=== PATIENT | male | born 1935 | race African-American/Black ===

== ENCOUNTER 2020-02-02 15:23 | Emergency (ER) | payer OTHER ==
[~2020-02-02] VITALS: Ht 177.8 cm; Wt 73.9 kg
[~2020-02-02 15:23] MED LIST: BUDEPRION SR150 MG PO; CARDURA4 MG PO; CEREFOLIN NAC PO; FIBER CHOICE1 EACH PO; FISH OIL 1,0001 EAC5 PO; HYDROCHLOROTHIA25 M1 PO; HYDROCODON-ACE1 EAC7 PO; NAPROSYN500 MG PO; NORCO 5-325 TA1 EACH PO; ONE DAILY TABL1 EAC1 PO; REMERON15 MG PO; ZOCOR 20 MG TAB20 M1 PO; ZPAK PO; [UNRECOGNIZED DRUG - REMARK]
[2020-02-02] MEDS ORDERED: SERTRALINE HCL100 MG PO (16:02)
[2020-02-02] MEDS ORDERED: ARICEPT10 MG PO (16:02)
[2020-02-02] MEDS ORDERED: BUPROPION XL300 MG PO (16:02)
[2020-02-02] MEDS ORDERED: MIRTAZAPINE45 MG PO (16:03)
[2020-02-02 18:12] VITALS: BP 180/104
== END 2020-02-02 18:12 | disposition home or self-care (01) ==
LOC: ER 15:23
DX: S00.93XA Contusion of unspecified part of head, initial encounter (principal); M54.2 Cervicalgia; K21.9 Gastro-esophageal reflux disease without esophagitis; I10 Essential (primary) hypertension; Z98.890 Other specified postprocedural states; Z79.899 Other long term (current) drug therapy; V89.9XXA Person injured in unspecified vehicle accident, initial encounter; Y93.89 Activity, other specified; Y92.89 Other specified places as the place of occurrence of the external cause; Y99.8 Other external cause status

== ENCOUNTER 2021-08-09 14:07 | Emergency (ER) | payer OTHER ==
[~2021-08-09] VITALS: Ht 170.2 cm; Wt 73.9 kg
[~2021-08-09 14:07] MED LIST changes: +ARICEPT10 MG PO; +BUPROPION XL300 MG PO; +MIRTAZAPINE45 MG PO; +SERTRALINE HCL100 MG PO
[2021-08-09 19:31] VITALS: BP 168/75
--- NOTE | 2021-08-12 14:53 | HC ---
[facility] [place] [address] CONSULTATION Name: DIAMOND YUEN Room #: [id number] Admission: 08/09/21 Attend Phys: Discharge: 08/09/21 Date of : 39 Report #: [id number] THIS REPORT FOR: cc: Tim Wen MD, Sequita MD Kneidel,Etahn Foreman MD ~ DATE OF SERVICE: 08/09/2021 CHIEF COMPLAINT: Left total hip dislocation. HISTORY OF PRESENT ILLNESS: This is an 85-year-old gentleman who had a total hip replacement a couple of weeks ago. He got his foot entangled today and fell with a dislocation of his total hip arthroplasty. He was evaluated in the Emergency Room at [place] [facility] and determined to have a hip dislocation and orthopedics was consulted for this. On physical exam, the patient has a shortened and internally rotated left lower extremity. He has good pulses and motor is intact distally. X-rays and CT scan noted a posteriorly displaced left total hip arthroplasty. The femoral stem and the acetabulum are well placed and well aligned. IMPRESSION: Left total hip dislocation. PLAN: A discussion was made with the patient to go ahead and proceed with a conscious sedation and closed reduction of the left total hip arthroplasty utilizing a traction with countertraction method on the anterior superior iliac spine. The hip was reduced by flexing and longitudinal traction. The hip went in easily. The joint then had free range of motion once in place. The patient tolerated the procedure well and will be placed into a knee immobilizer and will follow up with his primary surgeon, ____ some time next week. <ELECTRONICALLY SIGNED> By: Ethna Salas MD 08/12/21 [id number] 12 Ethan Salas MD /nt
== END 2021-08-09 19:33 | disposition home or self-care (01) ==
LOC: ER 14:07
DX: S73.015A Posterior dislocation of left hip, initial encounter (principal); K21.9 Gastro-esophageal reflux disease without esophagitis; I10 Essential (primary) hypertension; Z98.890 Other specified postprocedural states; X50.1XXA Overexertion from prolonged static or awkward postures, initial encounter; Y93.89 Activity, other specified; Y92.89 Other specified places as the place of occurrence of the external cause; Y99.8 Other external cause status